=== PATIENT | male | born 1975 | race Asian ===

== ENCOUNTER 2017-08-14 18:29 | Emergency (ER) | payer SELFPAY ==
[2017-08-14 18:34] VITALS: BP 100/68
--- NOTE | 2017-08-14 18:50 | EDPHY ---
HPI/HX/ROS/PE/MDM Narrative: CHIEF COMPLAINT: Rash HPI: The patient is a 41 y/o male complaining of an erythematous rash on his left chest that began on Thursday, 2 days ago. He denies itching or pain, "but once in a while something pops." The rash extends into his left axilla. He has a mild waxing and waning headache. No associated fever, nausea, vomiting, abdominal pain, diarrhea, urinary symptoms, or other complaints. He is normally healthy. REVIEW OF SYSTEMS: Aside from elements discussed in the HPI, a comprehensive 10-point review of systems was reviewed and is negative. PMH: Denies, varicella as a child SOCIAL HISTORY: Employed. Lives in [place]. PHYSICAL EXAM: General:Patient is alert, in no acute distress. ENT:Eyes are normal to inspection. ENT inspection normal. Neck: Normal inspection. Full range of motion. Respiratory:No respiratory distress. Breath sounds normal bilaterally. Cardiovascular: Regular rate and rhythm. Strong peripheral pulses. Normal cap refill. Abdomen:The abdomen is nontender to palpation. There are no peritoneal signs. Back: Normal to inspection. No tenderness to palpation. Skin: Normal color. Warm and dry. Erythematous patch under left nipple 10cm wide with multiple clear fluid-filled vesicals, several erythematous patches in dermatome pattern under left axilla. Extremities: Normal appearance. Full range of motion. Neuro: Oriented x3. Normal motor function. Normal sensory function. ED Course: This is a healthy 41 y/o male who presents with a non-tender and non-pruritic erythematous rash along his left anterior chest extending in a dermatome pattern into his left axilla. He is afebrile here. Though not yet painful, appearance and pattern of rash is consistent with shingles rash. Plan for discharge with script for valacyclovir and referral to PCP for follow up. Return precautions discussed. He is comfortable with this plan. General Time Seen by Provider: 08/14/17 18:36 Initial Vital Signs: Initial Vital Signs Temperature (C) 37 C 08/14/17 18:32 Heart Rate 104 H 08/14/17 18:32 Respiratory Rate 17 08/14/17 18:32 Blood Pressure 100/68 08/14/17 18:32 O2 Sat (%) 94 08/14/17 18:32 O2 Delivery Mode Room Air Allergies/Adverse Reactions: No Known Allergies Allergy (Unverified 08/14/17 18:32) Home Medications: Medication Instructions Recorded valACYclovir [Valtrex (*)] 1,000 mg PO TID 7 Days tab 08/14/17 Departure - Departure Disposition: Home, Routine, Self-Care Clinical Impression: Shingles Qualifiers: Herpes zoster complications: without complications Qualified Code(s): B02.9 - Zoster without complications Condition: Good Instructions: Valacyclovir (By mouth), Shingles (ED) Additional Instructions: 1. Take valacyclovir as prescribed for shingles. 2. Your rash is contagious and communicable by touch. Avoid contact with others until the rash has completely resolved. 3. Use ibuprofen and Tylenol as directed as needed for pain over the next few days. 4. Follow up with a primary care provider to establish care and for unimproved symptoms. 5. Return to the ED for worsening of condition. Adult Pain & Fever Control: We recommend Acetaminophen (Tylenol) and Ibuprofen (Motrin,Advil) for pain and fever control. When fever is high or pain severe, both drugs can be used at the same time, but at different intervals. Please note the time differences. Your dose is: Acetaminophen 650mg every 4 to 6 hours Ibuprofen 600mg every 8 hours with food Note: do not take Acetaminophen with Hydrocodone (Vicodin, Lortab) or Oxycodone (Percocet). These medications also contain Acetaminophen. No more than 3000mg of Acetaminophen should be taken in 24 hours (for an adult). Referrals: Leticia Henderson MD [Medical Doctor] - As per Instructions [facility],. [Clinic] - As per Instructions Prescriptions: valACYclovir [Valtrex (*)] 1,000 mg PO TID 7 Days tab Report Scribed for: Yoni Sutton Report Scribed by: Layla Gomes Date of Report: 08/14/17 Time of Report: 18:50 Physician Review and Approval Statement: Portions of this note were transcribed by an ED scribe. I personally performed the history, physical exam, and medical decision making; and confirm the accuracy of the information in the transcribed note.
== END 2017-08-14 19:20 | disposition home or self-care (01) ==
DX: B02.9 Zoster without complications (principal)